=== PATIENT | male | born 1955 | race Caucasian/White ===

== ENCOUNTER 2025-05-02 03:07 | Emergency (ER) | payer MEDICARE, OTHER, SELFPAY ==
[2025-05-02 03:11] VITALS: BP 144/99
--- NOTE | 2025-05-02 04:25 | ED.MUSCINJ ---
HPI-Injury
General
Chief Complaint: Musculo-Skeletal Complaint
Source: patient and family
Exam Limitations: none
Time Seen by Provider: 05/02/25 03:48
Nursing documentation reviewed up to this point in time: agreed with
History of Present Illness-Injury
Initial Injury comments:
Pleasant 70-year-old male presents to the emergency department with right wrist and hand pain. Patient had carpal tunnel surgery [place] 6 weeks ago. Patient states that he did not have pain
Phy Exam
General Physical Exam
General Presentation: well appearing and mild distress
General age: appears stated age
General Skin: warm and dry
General Habitus: normal
General Mental: alert
Musculoskeletal Exam
Musculoskeletal Exam: other (Evidence of carpal tunnel surgery on the right. Normal Moustapha's test indicating good vascular flow to the hand. Minimal swelling. No snuffbox tenderness. No signs of trauma. Skin is dry and intact.)
Skin Exam
Skin Exam: normal color and warm/dry
Psychiatric Exam
Psychiatric Exam: normal mood/affect
Injury Course
Orders/Labs/Results
Orders:
Orders
05/02/25 04:24
Dexamethasone [Decadron] 10 mg PO NOW STA
Oxycodone/Acetaminophen [Percocet 5/325] 1 tablet PO NOW STA
05/02/25 04:55
Hand, Right 3 View [CR Hand - Right Min 3 Views] Urgent
Comment:
Reason For Exam: hand pain
*Critical Care Note
Total Time (30-74mins, 75-104mins- exclusive of procedures): Not Applicable
ED Attending Note
-
Portions of this chart may have been created with voice recognition software.� Occasional wrong word or��sound alike� substitutions may have occurred due to the inherent limitations of voice recognition software.
Discharge Plan
Departure
Patient Disposition: Home (Routine Discharge)
Date of Disposition: 05/02/25
Time of Disposition: 05:16
Patient with high blood pressure during this ER visit?: Yes
Condition: Good
Discharge Problem:
Pain in wrist, Postoperative pain
Instructions: Muscle and Bone Pain (DC), BLOOD PRESSURE
Prescriptions:
New
oxycodone-acetaminophen [Percocet] 5-325 mg tablet
1 tab PO Q6HPRN PRN (Reason: pain) Qty: 5 0RF
Referrals:
Luis Felipe Larson MD [Active, Orthopedics]
UNKNOWN - PT DOES,NOT KNOW [Family Provider]
Activity Restrictions/Additional Instructions:
Tylenol Motrin for the pain.
Thank You for choosing [facility].
It was a pleasure meeting you and taking part in your care. We hope for your continued healing and wellness.
Please read discharge instructions in their entirety. However, they are for general education and may not describe your exact diagnosis at discharge. Information on your ER visit and medical conditions were discussed with you along with appropriate
follow up information...
If indicated, please take your medications as instructed and indicated on discharge paperwork.
Please schedule a follow up appointment as directed. Call to schedule an appointment
Please return to the emergency department with ANY change in, persisting, or worsening of symptoms. If any of your symptoms do not improve, or persist, or become more severe within 6-12 hours, please return to the emergency department for further
care.
Please return to the emergency department if you develop a headache, neck pain/stiffness, fever greater than 100.4F, chest pain, shortness of breath, persistent nausea, vomiting, slurred speech, difficulty walking, numbness/tingling, weakness, signs
of infection or any other symptoms that are worrisome to you.
If you have any questions or concerns please do not hesitate to call the Hospital at or E-mail me directly at [email or web address]
Interventions
Interventions:
*Risk Screen - Suicide Last Done: 05/02/25 03:11
*Neglect/Abuse Screening Last Done: 05/02/25 03:11
*ED- Fall Risk Assessment Last Done: 05/02/25 03:11
*ED COVID-19 Vaccine History Last Done: 05/02/25 03:11
Discharge Date and Time
Print Language: [facility]
[2025-05-02] MEDS: DECADRON 10 MG PO (04:43)
[2025-05-02] MEDS: PERCOCET 5/325 1 TABLET PO (04:43)
== END 2025-05-02 06:20 | disposition home or self-care (01) ==
LOC: EMR 03:07
PROVIDERS: EMERGENCY PHYSICIAN Student in an Organized Health Care Education/Training Program
DX: G89.18 Other acute postprocedural pain (principal); M25.531 Pain in right wrist; M79.641 Pain in right hand
CPT/HCPCS: 99283; 73130